=== PATIENT | female | born 2000 | race American Indian/Alaskan Native ===

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

== ENCOUNTER 2021-06-23 02:08 | Emergency (ER) | payer MEDICAID ==
[2021-06-23] MEDS ORDERED: ACETAMINOPHEN 500 MG TAB PO ONE (02:47)
[2021-06-23 02:50] LABS: Basophils # (Auto) 0.1 K/mm3 (0.0-0.1); Basophils % (Auto) 0.8 % (0.0-1.8); Eosinophils % (Auto) 0.4 % (0.0-4.3); Hematocrit 37.2 % (30.3-42.9); Hemoglobin 12.4 gm/dl (10.1-14.3); Lymphocytes # (Auto) 1.9 K/mm3 (1.2-5.4); Lymphocytes % (Auto) 18.6 % (13.4-35.0); Mean Corpuscular HGB Conc 33 % (30-34); Mean Corpuscular Volume 88 fl (79-97); Monocytes # (Auto) 1.2 K/mm3 (0.0-0.8); Monocytes % (Auto) 11.7 % (0.0-7.3); Platelet Count 254 K/mm3 (140-440); Red Blood Count 4.24 M/mm3 (3.65-5.03); Red Cell Distribution Width 16.3 % (13.2-15.2)
[2021-06-23 03:06] LABS: Alanine Aminotransferase 8 units/L (7-56); Albumin 4.2 g/dL (3.9-5); Blood Urea Nitrogen 8 mg/dL (7-17); Calcium 8.9 mg/dL (8.4-10.2); Hemolysis Index 2
[2021-06-23 03:09] LABS: BUN/Creatinine Ratio 11
[2021-06-23 04:32] LABS: Bilirubin,Urine NEG (Negative); Blood,Urine LG (Negative); Color,Urine Yellow (Yellow); WBC,Urine < 1.0 /HPF (0.0-6.0)
--- NOTE | 2021-06-23 04:34 | Emergency Department Report ---
ED Female HPI - General Chief complaint: Vaginal Bleeding Stated complaint: /VAGINAL BLEEDING Source: patient Mode of arrival: Ambulatory Limitations: No Limitations - History of Present Illness Initial comments: Patient is a A0 21-year-old -Swiss female who is approximately 7 weeks gestation and who presents to the ED with complaint of acute onset pers istent pelvic pain and vaginal bleeding for the last 2 hours. Patient states that she was asleep when she noticed that she was bleeding and that the suprapubic pain got worse. Patient denies dysuria, urinary frequency and urgency, hematuria, dyspareunia, low back pain, nausea and vomiting or diarrhea, cough, sore throat or headache, dizziness or syncope. MD Complaint: vaginal bleeding, pelvic pain -: Sudden, hour(s) (2) Location: suprapubic, other (vagina) Radiation: suprapubic Severity: moderate Severity scale (0 -10): 6 Quality: cramping, sharp, aching Consistency: constant Improves with: none Worsens with: none Are you Now?: Yes (approximately 7 weeks gestation) Associated Symptoms: denies other symptoms, vaginal bleeding, abdominal pain (Suprapubic). denies: vaginal discharge, nausea/vomiting, fever/chills, headaches, loss of appetite, dysuria, hematuria, rash, shortness of breath, syncope - Related Data Sexually active: Yes : 1 Para: 0 A: 0 Previous Rx's Medication Instructions Recorded Last Taken Type Acetaminophen [Tylenol] 500 mg PO Q6HR PRN #30 tablet 06/23/21 Unknown Rx Allergies Allergy/AdvReac Type Severity Reaction Status Date / Time No Known Allergies Allergy Unverified 10/23/20 07:19 ED Review of Systems ROS: Stated complaint: /VAGINAL BLEEDING Other details as noted in HPI Constitutional: denies: chills, fever Eyes: denies: eye pain, eye discharge, vision change ENT: denies: ear pain, throat pain Respiratory: denies: cough, shortness of breath, wheezing Cardiovascular: denies: chest pain, palpitations Endocrine: no symptoms reported Gastrointestinal: abdominal pain (Suprapubic pain). denies: nausea, vomiting, diarrhea Genitourinary: abnormal menses (Vaginal bleeding). denies: urgency, dysuria, frequency, hematuria, discharge Musculoskeletal: denies: back pain, joint swelling, arthralgia Skin: denies: rash, lesions Neurological: denies: headache, weakness, paresthesias Psychiatric: denies: anxiety, depression Hematological/Lymphatic: denies: easy bleeding, easy bruising ED Past Medical Hx - Past Medical History Previous Medical History?: No - Surgical History Past Surgical History?: No - Social History Smoking Status: Never Smoker Substance Use Type: None - Medications Home Medications: Home Medications Medication Instructions Recorded Confirmed Last Taken Type Acetaminophen [Tylenol] 500 mg PO Q6HR PRN #30 tablet 06/23/21 Unknown Rx ED Physical Exam - General Limitations: No Limitations General appearance: alert, in no apparent distress - Head Head exam: Present: atraumatic, normocephalic, normal inspection - Eye Eye exam: Present: normal appearance, PERRL, EOMI Pupils: Present: normal accommodation - ENT ENT exam: Present: normal exam, normal orophraynx, mucous membranes moist, TM's normal bilaterally, normal external ear exam - Neck Neck exam: Present: normal inspection, full ROM. Absent: tenderness - Respiratory Respiratory exam: Present: normal lung sounds bilaterally. Absent: respiratory distress, wheezes, rales, rhonchi, chest wall tenderness, accessory muscle use, decreased breath sounds, prolonged expiratory - Cardiovascular Cardiovascular Exam: Present: regular rate, normal rhythm, normal heart sounds. Absent: systolic murmur, diastolic murmur, rubs, gallop - GI/Abdominal GI/Abdominal exam: Present: soft, tenderness (Palpable suprapubic tenderness), normal bowel sounds. Absent: guarding, rebound, hyperactive bowel sounds, hypoactive bowel sounds, organomegaly, mass - Bi-manual exam: Present: other (Pelvic exam deferred at this time.) - Extremities Exam Extremities exam: Present: normal inspection, full ROM, normal capillary refill - Back Exam Back exam: Present: normal inspection, full ROM. Absent: tenderness, CVA tenderness (R), CVA tenderness (L), muscle spasm, paraspinal tenderness, vertebral tenderness - Neurological Exam Neurological exam: Present: alert, oriented X3, CN II-XII intact, normal gait, reflexes normal - Psychiatric Psychiatric exam: Present: normal affect, normal mood - Skin Skin exam: Present: warm, dry, intact, normal color. Absent: rash ED Course Vital Signs 06/23/21 06/23/21 02:19 02:55 Temperature 98.2 F Pulse Rate 98 H Respiratory 18 14 Rate Blood Pressure 103/63 O2 Sat by Pulse 100 Oximetry ED Medical Decision Making - Lab Data Result diagrams: 06/23/21 02:34 06/23/21 02:34 - Radiology Data Radiology results: report reviewed, image reviewed The transvaginal and transabdominal ultrasound showed a well-defined oval-shaped well-defined gestational sac in intrauterine location but the yolk sac was not identified. There was no heart activity identified. The crown-rump length was approximately 8 weeks and 3 days. The gestational sac measures 4.34 centimeters corresponding to estimated gestational age of 9 weeks and 6 days. The right ovary was not visualized or identified but left ovary measures 2.9 x 2.1 x 2.9 cm. The uterus measures 10.1 x 6.6 x 6.8 cm. Therefore there was a single intrauterine gestation with no heart activity. Appearance is compatible with demise with estimated sonographic age of 9 weeks and 1 day. - Medical Decision Making This is a A0 21-year-old -Swiss female who is approximately 7 weeks gestation and who presents to the ED with complaint of acute onset persistent pelvic pain and vaginal bleeding for the last 2 hours. Patient states that she was asleep when she noticed that she was bleeding and that the suprapubic pain got worse. In the ED, patient is alert and oriented x3 and is not in any distress. Patient was treated for pain in the ED with Tylenol. Lab test results were reviewed and showed acute hyponatremia 133 mmol/L and hCG quant of 4701. Urinalysis showed significant large amount of blood. Transvaginal ultrasound showed a single intrauterine gestation with no heart activity. Appearance is compatible with demise with estimated sonographic age of 9 weeks and 1 day. On reevaluation, patient's pain is well controlled medication. Patient discharged home and advised to maintain a complete pelvic rest, and return to the ED in 2 days for hCG quant recheck to ascertain the viability of the . Patient was advised to follow-up with INFORMATION [employer]S SECURITY MANAGER physician in 5 to 7 days for reevaluation or return to the ED immediate ly if symptoms get worse. - Differential Diagnosis Threatened miscarriage; UTI; ovarian cyst; subchorionic bleed; Critical care attestation.: If time is entered above; I have spent that time in minutes in the direct care of this critically ill patient, excluding procedure time. ED Disposition Clinical Impression: Threatened miscarriage in early , Abdominal pain during in first trimester, Inevitable spontaneous , Incomplete miscarriage Disposition: HOME / SELF CARE / HOMELESS Is pt being admited?: No Does the pt Need Aspirin: No Condition: Stable Instructions: Threatened Miscarriage, [id number], Miscarriage, [id number], Incomplete Miscarriage, Managing Loss, Vaginal Bleeding During , First Trimester, [id number] Additional Instructions: All lab test results were reviewed and are all nonactionable with the hCG quant of 4701. The transvaginal ultrasound showed single intrauterine gestation with no heart activity consistent with demise with estimated gestational age of 9 weeks and 1 day. Therefore maintain a complete pelvic rest with no physical activity, strenuous activities or sexual activities. Return to the ED in 48 hours for repeat hCG quant test to confirm demise or complete miscarriage with hCG quant. Follow-up with your INFORMATION SYSTEMS SECURITY MANAGER physician in 5 to 7 days for reevaluation. Return to the ED immediately if symptoms get worse. Prescriptions: Acetaminophen [Tylenol] 500 mg PO Q6HR PRN #30 tablet PRN Reason: Pain , Severe (7-10) Referrals: CELESTINE EPSTEIN MD [Staff Physician] - 3-5 Days Forms: Work/School Release Form(ED) Time of Disposition: 05:11 Print Language: IRISH
[2021-06-23 05:45] VITALS: BP 99/60
--- NOTE | 2021-06-26 08:22 | Ultrasound Report ---
ULTRASOUND OBSTETRIC INDICATION / CLINICAL INFORMATION: Pelvic pain, vaginal bleeding; . Clinical Gestational Age (GA) in weeks, days: 11, 6 TECHNIQUE: Transabdominal and Transvaginal. COMPARISON: None available. FINDINGS: GESTATIONAL SAC: Well-defined oval shape and intrauterine in location. YOLK SAC: Not identified EMBRYO/FETUS: No heart activity. - [place]-Rump Length = 1.90 cm = 8, 3 weeks, days - Heart Rate, beats per minute (if present) = 0 Gestational sac measures 4.34 cm correlating with estimated gestational age 9 weeks 6 days. ADNEXA: Right ovary not identified. Left ovary measures 2.9 x 2.1 x 2.9 cm. FREE FLUID: None. ADDITIONAL FINDINGS: The uterus measures 10.1 x 6.6 x 6.8 cm. IMPRESSION: 1. Single intrauterine gestation no heart activity. Disproportionate sac size 2 crown-rump length. Ap pearance is compatible with demise. with estimated sonographic age of weeks, days. 9 weeks, 1 day. Signer Name: Joshua Logan II, MD Signed: 06/23/2021 4:40 AM Workstation Name: [id number]
--- NOTE | 2021-06-26 08:22 | Ultrasound Report ---
ULTRASOUND OBSTETRIC INDICATION / CLINICAL INFORMATION: Pelvic pain, vaginal bleeding; . Clinical Gestational Age (GA) in weeks, days: 11, 6 TECHNIQUE: Transabdominal and Transvaginal. COMPARISON: None available. FINDINGS: GESTATIONAL SAC: Well-defined oval shape and intrauterine in location. YOLK SAC: Not identified EMBRYO/FETUS: No heart activity. - [place]-Rump Length = 1.90 cm = 8, 3 weeks, days - Heart Rate, beats per minute (if present) = 0 Gestational sac measures 4.34 cm correlating with estimated gestational age 9 weeks 6 days. ADNEXA: Right ovary not identified. Left ovary measures 2.9 x 2.1 x 2.9 cm. FREE FLUID: None. ADDITIONAL FINDINGS: The uterus measures 10.1 x 6.6 x 6.8 cm. IMPRESSION: 1. Single intrauterine gestation no heart activity. Disproportionate sac size 2 crown-rump length. Ap pearance is compatible with demise. with estimated sonographic age of weeks, days. 9 weeks, 1 day. Signer Name: Joshua Logan II, MD Signed: 06/23/2021 4:40 AM Workstation Name: [id number]
== END 2021-06-23 05:47 | disposition home or self-care (01) ==
LOC: ED 02:08
DX: O20.0 Threatened abortion (principal); O26.891 Other specified pregnancy related conditions, first trimester; R10.9 Unspecified abdominal pain
CPT/HCPCS: 36415; 76801; 76817; 80053; 81001; 84702; 85025; 86900; 86901; 99284